=== PATIENT | male | born 1980 | race Caucasian/White ===

== ENCOUNTER 2024-10-14 23:39 | Emergency (ER) | payer OTHER ==
[2024-10-14 23:43] VITALS: BP 137/95; PULSE 95; RESP 20; TEMP 98; BMI 29.5
[2024-10-15] MEDS ORDERED: IBUPROFEN 400 MG TABLET (FP) PO ONE (01:01)
[2024-10-15] MEDS: IBUPROFEN 400 MG TABLET (FP) PO ONE (01:13)
== END 2024-10-15 01:49 | disposition home or self-care (01) ==
LOC: JER 23:39
PROC: 2W3CX1Z Immobilization of Right Lower Arm using Splint (ICD-10-PCS; principal; 2024-10-14)
DX: S62.316A Displaced fracture of base of fifth metacarpal bone, right hand, initial encounter for closed fracture (principal); W01.0XXA Fall on same level from slipping, tripping and stumbling without subsequent striking against object, initial encounter; Y99.0 Civilian activity done for income or pay
CPT/HCPCS: 73130-TC-RT-FY; 99283-25